=== PATIENT | female | born 1945 | race Caucasian/White ===

== ENCOUNTER 2019-09-22 17:39 | Inpatient (IN) | payer MEDICARE ==
[~2019-09-22] VITALS: Ht 170.2 cm; Wt 64.6 kg
[2019-09-22 17:47] VITALS: BP 106/69
[2019-09-22 18:20] LABS: BASO % 0.4 % (0.0-1.0); EOS % 0.4 % (1.0-4.0); HEMATOCRIT 41.7 % (37.0-47.0); LYMPH # 1.4 10*3/uL (1.3-4.4); LYMPH % 27.5 % (27.0-41.0); MEAN CELL VOLUME 86.2 fl (81.0-99.0); MEAN CORPUSCULAR HGB 30.4 pg (27.0-31.0); MEAN CORPUSCULAR HGB CONC 35.3 g/dl (33.0-37.0); MEAN PLATELET VOLUME 9.7 fl (9.6-12.3); MONO # 0.7 10*3/uL (0.1-1.0); MONO % 14.2 % (3.0-9.0); NEUT # 2.8 10*3/uL (2.3-7.9); NEUT % 56.7 % (47.0-73.0); PLATELET COUNT AUTOMATED 414 10*3/uL (130-400); RED BLOOD COUNT 4.84 10*6/uL (4.10-5.10); RED CELL DISTRI WIDTH 13.7 % (0-14.5); WHITE BLOOD COUNT 4.9 10*3/uL (4.8-10.8)
[2019-09-22 18:35] LABS: ALBUMIN 2.7 gm/dl (3.1-4.5); ALKALINE PHOSPHATASE 93 U/L (45-117); BUN 34 mg/dl (7-24); CHLORIDE 92 mmol/L (98-107); CREATININE 1.07 mg/dL (0.55-1.02); POTASSIUM 2.7 mmol/L (3.5-5.1); SGOT/AST 26 IU/L (3-35); SGPT/ALT 32 U/L (12-78); SODIUM 130 mmol/L (136-145); TOTAL PROTEIN 6.4 gm/dL (6.4-8.2)
[2019-09-22 20:01] VITALS: BP 132/66
[2019-09-22 20:25] VITALS: BP 152/72
[2019-09-22] MEDS ORDERED: NORVASC5 MG PO (20:38)
[2019-09-22 22:40] VITALS: BP 152/72
[2019-09-23] VITALS: BP 108/63
[2019-09-23 08:00] VITALS: BP 142/86
[2019-09-23 08:12] LABS: BUN 30 mg/dl (7-24); CHLORIDE 100 mmol/L (98-107); CREATININE 0.67 mg/dL (0.55-1.02); SODIUM 140 mmol/L (136-145)
[2019-09-23 08:20] LABS: POTASSIUM 2.3 mmol/L (3.5-5.1)
[2019-09-23 12:00] VITALS: BP 130/80
[2019-09-23 12:46] LABS: ALBUMIN 2.3 gm/dl (3.1-4.5); ALKALINE PHOSPHATASE 91 U/L (45-117); BUN 31 mg/dl (7-24); CHLORIDE 100 mmol/L (98-107); CREATININE 0.63 mg/dL (0.55-1.02); POTASSIUM 2.8 mmol/L (3.5-5.1); SGOT/AST 32 IU/L (3-35); SGPT/ALT 34 U/L (12-78); SODIUM 139 mmol/L (136-145); TOTAL PROTEIN 5.6 gm/dL (6.4-8.2)
[2019-09-23 16:00] VITALS: BP 159/84
[2019-09-23 20:00] VITALS: BP 161/80
[2019-09-24] VITALS: BP 160/85
[2019-09-24 07:51] LABS: BUN 25 mg/dl (7-24); CHLORIDE 101 mmol/L (98-107); CREATININE 0.52 mg/dL (0.55-1.02); POTASSIUM 3.6 mmol/L (3.5-5.1); SODIUM 137 mmol/L (136-145)
[2019-09-24 08:00] VITALS: BP 146/90
[2019-09-24 12:00] VITALS: BP 144/80
[2019-09-24 16:00] VITALS: BP 153/82
[2019-09-24 20:00] VITALS: BP 152/80
[2019-09-25] VITALS: BP 142/81
[2019-09-25 06:26] LABS: BUN 18 mg/dl (7-24); CHLORIDE 103 mmol/L (98-107); CREATININE 0.51 mg/dL (0.55-1.02); POTASSIUM 3.3 mmol/L (3.5-5.1); SODIUM 137 mmol/L (136-145)
[2019-09-25 08:01] VITALS: BP 140/70
[2019-09-25] MEDS ORDERED: GLUCOPHAGE500 MG PO (10:50)
[2019-09-25] MEDS ORDERED: KLOR-CON M2020 ME1 PO (10:59)
[2019-09-25] MEDS ORDERED: ZESTRIL,PRINIVIL5 MG PO (10:59)
[2019-09-25 12:00] VITALS: BP 138/75
[2019-09-25 16:00] VITALS: BP 116/62
== END 2019-09-25 19:02 | disposition home or self-care (01) | DRG 638 ==
LOC: ED 17:39 → 5E 19:15 → EDHOLD 19:15 → 5E 19:40
PROVIDERS: Emergency Medicine; ADMIT Internal Medicine
DX: E11.65 Type 2 diabetes mellitus with hyperglycemia (principal); E44.0 Moderate protein-calorie malnutrition; E86.0 Dehydration; I10 Essential (primary) hypertension; E87.6 Hypokalemia; Z68.22 Body mass index [BMI] 22.0-22.9, adult; Z93.3 Colostomy status; Z90.49 Acquired absence of other specified parts of digestive tract

== ENCOUNTER 2019-09-30 16:16 | Inpatient (IN) | payer MEDICARE ==
[~2019-09-30] VITALS: Ht 167.6 cm; Wt 63.1 kg
[~2019-09-30 16:16] MED LIST: GLUCOPHAGE500 MG PO; KLOR-CON M2020 ME1 PO; NORVASC5 MG PO; ZESTRIL,PRINIVIL5 MG PO
[2019-09-30 16:19] VITALS: BP 102/67
[2019-09-30 16:47] LABS: BASO % 0.3 % (0.0-1.0); EOS # 0.1 10*3/uL (0.0-0.4); EOS % 0.9 % (1.0-4.0); HEMATOCRIT 39.7 % (37.0-47.0); LYMPH # 1.9 10*3/uL (1.3-4.4); LYMPH % 21.2 % (27.0-41.0); MEAN CELL VOLUME 89.4 fl (81.0-99.0); MEAN CORPUSCULAR HGB 29.5 pg (27.0-31.0); MEAN PLATELET VOLUME 8.9 fl (9.6-12.3); MONO # 0.7 10*3/uL (0.1-1.0); MONO % 7.1 % (3.0-9.0); NEUT # 6.3 10*3/uL (2.3-7.9); NEUT % 69.7 % (47.0-73.0); PLATELET COUNT AUTOMATED 394 10*3/uL (130-400); RED BLOOD COUNT 4.44 10*6/uL (4.10-5.10); RED CELL DISTRI WIDTH 14.5 % (0-14.5); WHITE BLOOD COUNT 9.1 10*3/uL (4.8-10.8)
[2019-09-30 16:58] LABS: ACT PARTIAL THROMBO TIME 25.6 SECONDS (20.0-32.1)
[2019-09-30 17:03] LABS: ALBUMIN 2.2 gm/dl (3.1-4.5); ALKALINE PHOSPHATASE 97 U/L (45-117); BUN 18 mg/dl (7-24); CHLORIDE 110 mmol/L (98-107); CREATININE 0.66 mg/dL (0.55-1.02); LIPASE 110 U/L (73-393); POTASSIUM 4.7 mmol/L (3.5-5.1); SGOT/AST 12 IU/L (3-35); SGPT/ALT 22 U/L (12-78); SODIUM 137 mmol/L (136-145); TOTAL PROTEIN 5.8 gm/dL (6.4-8.2)
[2019-09-30 17:13] LABS: TROPONIN I 0.056 ng/ml (<0.045)
[2019-09-30 18:51] VITALS: BP 122/68
[2019-09-30] MEDS ORDERED: METFORMIN HYDR500 MG PO (19:57)
[2019-09-30] MEDS ORDERED: GLIMEPIRIDE4 M1 PO (19:57)
[2019-09-30 20:20] VITALS: BP 102/72
[2019-10-01] VITALS: BP 127/70
[2019-10-01 07:28] LABS: BUN 15 mg/dl (7-24); CHLORIDE 109 mmol/L (98-107); CREATININE 0.56 mg/dL (0.55-1.02); POTASSIUM 4.2 mmol/L (3.5-5.1); SODIUM 139 mmol/L (136-145)
[2019-10-01 08:00] VITALS: BP 134/69; BP 136/54
[2019-10-01 08:23] LABS: BASO % 0.5 % (0.0-1.0); EOS # 0.3 10*3/uL (0.0-0.4); EOS % 4.1 % (1.0-4.0); HEMATOCRIT 36.1 % (37.0-47.0); LYMPH # 2.2 10*3/uL (1.3-4.4); LYMPH % 33.4 % (27.0-41.0); MEAN CELL VOLUME 90.3 fl (81.0-99.0); MEAN CORPUSCULAR HGB CONC 33.2 g/dl (33.0-37.0); MEAN PLATELET VOLUME 9.5 fl (9.6-12.3); MONO # 0.6 10*3/uL (0.1-1.0); MONO % 8.9 % (3.0-9.0); NEUT # 3.4 10*3/uL (2.3-7.9); NEUT % 52.2 % (47.0-73.0); PLATELET COUNT AUTOMATED 365 10*3/uL (130-400); RED CELL DISTRI WIDTH 14.6 % (0-14.5); WHITE BLOOD COUNT 6.5 10*3/uL (4.8-10.8)
[2019-10-01 12:00] VITALS: BP 119/66
[2019-10-01 13:56] LABS: BILIRUBIN NEGATIVE (NEGATIVE); CLARITY SL CLOUDY (CLEAR); COLOR YELLOW (YELLOW); GLUCOSE NEGATIVE (NEGATIVE); KETONE TRACE (NEGATIVE)
[2019-10-01 13:57] LABS: BLOOD NEGATIVE (NEGATIVE); LEUKO ESTERASE 1+ (NEGATIVE); NITRITE NEGATIVE (NEGATIVE); UROBILINOGEN 0.2 E.U./dl (0.2-1.0)
[2019-10-01 14:07] LABS: RBC 0-2 rbc/hpf (0-2); WBC 16-20 wbc/hpf (0-5)
[2019-10-01 14:08] LABS: BACTERIA 4+; MUCOUS TRACE
[2019-10-01 16:00] VITALS: BP 129/79
[2019-10-01 20:00] VITALS: BP 85/49; BP 96/62
[2019-10-02] VITALS: BP 135/76
[2019-10-02 08:00] VITALS: BP 103/56
[2019-10-02 12:00] VITALS: BP 110/52
[2019-10-02 16:00] VITALS: BP 129/57
[2019-10-02 20:00] VITALS: BP 120/63
[2019-10-03] VITALS: BP 127/78
[2019-10-03 06:27] LABS: BASO % 0.2 % (0.0-1.0); EOS # 0.1 10*3/uL (0.0-0.4); EOS % 0.9 % (1.0-4.0); HEMATOCRIT 38.8 % (37.0-47.0); LYMPH # 1.6 10*3/uL (1.3-4.4); LYMPH % 18.7 % (27.0-41.0); MEAN CELL VOLUME 87.8 fl (81.0-99.0); MEAN CORPUSCULAR HGB 28.7 pg (27.0-31.0); MEAN CORPUSCULAR HGB CONC 32.7 g/dl (33.0-37.0); MEAN PLATELET VOLUME 9.3 fl (9.6-12.3); MONO # 0.7 10*3/uL (0.1-1.0); MONO % 8.4 % (3.0-9.0); NEUT # 6.2 10*3/uL (2.3-7.9); NEUT % 71.5 % (47.0-73.0); PLATELET COUNT AUTOMATED 400 10*3/uL (130-400); RED BLOOD COUNT 4.42 10*6/uL (4.10-5.10); RED CELL DISTRI WIDTH 14.3 % (0-14.5); WHITE BLOOD COUNT 8.6 10*3/uL (4.8-10.8)
[2019-10-03 06:47] LABS: BUN 17 mg/dl (7-24); CHLORIDE 106 mmol/L (98-107); CREATININE 0.51 mg/dL (0.55-1.02); POTASSIUM 3.7 mmol/L (3.5-5.1); SODIUM 138 mmol/L (136-145)
[2019-10-03 08:00] VITALS: BP 152/85
[2019-10-03 12:00] VITALS: BP 155/74
[2019-10-03] MEDS ORDERED: REMERON15 M2 PO (16:27)
[2019-10-03] MEDS ORDERED: QUESTRAN POWDE378 GM PO (16:30)
== END 2019-10-03 18:15 | disposition other institution (70) | DRG 637 ==
LOC: ED 16:16 → EDHOLD 19:03 → 5E 19:03
PROVIDERS: Emergency Medicine; ADMIT Internal Medicine
DX: E11.65 Type 2 diabetes mellitus with hyperglycemia (principal); E43 Unspecified severe protein-calorie malnutrition; E86.0 Dehydration; E87.6 Hypokalemia; R62.7 Adult failure to thrive; I10 Essential (primary) hypertension; E11.649 Type 2 diabetes mellitus with hypoglycemia without coma; R19.7 Diarrhea, unspecified; R26.9 Unspecified abnormalities of gait and mobility; Z68.22 Body mass index [BMI] 22.0-22.9, adult; Z93.3 Colostomy status; Z90.49 Acquired absence of other specified parts of digestive tract; F32.9 Major depressive disorder, single episode, unspecified

== ENCOUNTER → 2020-09-29 | Outpatient (CLI) | payer MEDICARE ==
[~2020-09-29] MED LIST changes: +GLIMEPIRIDE4 M1 PO; +METFORMIN HYDR500 MG PO; +QUESTRAN POWDE378 GM PO; +REMERON15 M2 PO
[2020-09-29 15:47] LABS: ALBUMIN 3.1 gm/dl (3.1-4.5); CREATININE 1.25 mg/dL (0.55-1.02); TOTAL PROTEIN 7.9 gm/dL (6.4-8.2)
== END | disposition home or self-care (01) ==
LOC: LAB 12:29
PROVIDERS: ATTEND Internal Medicine
DX: I10 Essential (primary) hypertension (principal); E78.2 Mixed hyperlipidemia

== ENCOUNTER → 2020-11-22 | Outpatient (CLI) | payer MEDICARE ==
[2020-11-22 12:02] LABS: ALBUMIN 3.3 gm/dl (3.1-4.5); CREATININE 1.41 mg/dL (0.55-1.02); POTASSIUM 4.1 mmol/L (3.5-5.1); TOTAL PROTEIN 7.6 gm/dL (6.4-8.2)
== END | disposition home or self-care (01) ==
LOC: LAB 11:14
PROVIDERS: ATTEND Internal Medicine
DX: E55.9 Vitamin D deficiency, unspecified (principal); D52.9 Folate deficiency anemia, unspecified; D51.9 Vitamin B12 deficiency anemia, unspecified; R70.0 Elevated erythrocyte sedimentation rate; R79.82 Elevated C-reactive protein (CRP); R74.8 Abnormal levels of other serum enzymes; R79.89 Other specified abnormal findings of blood chemistry; R53.81 Other malaise; E03.9 Hypothyroidism, unspecified; E78.2 Mixed hyperlipidemia

== ENCOUNTER → 2020-12-09 | Outpatient (CLI) | payer MEDICARE | END | disposition home or self-care (01) | LOC: US 14:57 | PROVIDERS: ATTEND Internal Medicine | DX: R60.0 Localized edema (principal) ==

== ENCOUNTER 2021-02-11 16:43 | Emergency (ER) | payer MEDICARE ==
[~2021-02-11] VITALS: Ht 167.6 cm; Wt 67.6 kg
[2021-02-11 17:50] LABS: EOS % 0.2 % (1.0-4.0); MONO % 5.6 % (3.0-9.0)
[2021-02-11 18:04] LABS: ALBUMIN 3.3 gm/dl (3.1-4.5); CREATININE 1.29 mg/dL (0.55-1.02); TOTAL PROTEIN 8.1 gm/dL (6.4-8.2)
[2021-02-11 18:11] LABS: BASO % 0.3 % (0.0-1.0); HEMATOCRIT 33.8 % (37.0-47.0); LYMPH % 15.7 % (27.0-41.0); MEAN CELL VOLUME 94.2 fl (81.0-99.0); MEAN CORPUSCULAR HGB 33.1 pg (27.0-31.0); MEAN CORPUSCULAR HGB CONC 35.2 g/dl (33.0-37.0); MEAN PLATELET VOLUME 10.1 fl (9.6-12.3); MONO # 0.4 10*3/uL (0.1-1.0); NEUT # 5.1 10*3/uL (2.3-7.9); NEUT % 77.9 % (47.0-73.0); PLATELET COUNT AUTOMATED 329 10*3/uL (130-400); RED BLOOD COUNT 3.59 10*6/uL (4.10-5.10); RED CELL DISTRI WIDTH 17.9 % (0-14.5); WHITE BLOOD COUNT 6.6 10*3/uL (4.8-10.8)
[2021-02-11] MEDS ORDERED: ZOFRAN4 MG PO (18:27)
== END 2021-02-11 18:32 | disposition home or self-care (01) ==
LOC: ED 16:43
PROVIDERS: Student in an Organized Health Care Education/Training Program
DX: I16.0 Hypertensive urgency (principal); R11.0 Nausea

== ENCOUNTER → 2021-05-04 | Outpatient (CLI) | payer MEDICARE ==
[~2021-05-04] MED LIST changes: +ZOFRAN4 MG PO
[2021-05-04 16:18] LABS: ALBUMIN 2.9 gm/dl (3.1-4.5); CREATININE 1.23 mg/dL (0.55-1.02); POTASSIUM 4.2 mmol/L (3.5-5.1); TOTAL PROTEIN 7.5 gm/dL (6.4-8.2)
== END ==
LOC: LAB 15:23
PROVIDERS: ATTEND Internal Medicine
DX: I10 Essential (primary) hypertension (principal); E78.2 Mixed hyperlipidemia

== ENCOUNTER → 2021-05-11 | Outpatient (CLI) | payer MEDICARE | LOC: LAB 13:47 | PROVIDERS: ATTEND Internal Medicine | DX: N39.0 Urinary tract infection, site not specified (principal) ==

== ENCOUNTER → 2021-07-12 | Outpatient (CLI) | payer MEDICARE ==
[2021-07-12 14:46] LABS: BILIRUBIN Negative (Negative); BLOOD 1+ (Negative); CLARITY Turbid (Clear); COLOR Yellow (Yellow); GLUCOSE Negative (Negative); KETONE Negative (Negative); LEUKO ESTERASE 3+ (Negative); NITRITE Negative (Negative); PH 6.5 (4.5-8.0); UROBILINOGEN 0.2 E.U./dl (0.0-1.0)
[2021-07-12 15:12] LABS: BACTERIA 3+; WBC TNTC wbc/hpf (0-5)
== END | disposition home or self-care (01) ==
LOC: LAB 14:02
PROVIDERS: ATTEND Internal Medicine
DX: N39.0 Urinary tract infection, site not specified (principal)

== ENCOUNTER → 2021-09-19 | Outpatient (CLI) | payer MEDICARE ==
[2021-09-19 13:59] LABS: BASO % 0.4 % (0.0-1.0); EOS # 0.1 10*3/uL (0.0-0.4); EOS % 1.8 % (1.0-4.0); HEMATOCRIT 28.2 % (37.0-47.0); LYMPH # 1.9 10*3/uL (1.3-4.4); LYMPH % 25.8 % (27.0-41.0); MEAN CELL VOLUME 98.6 fl (81.0-99.0); MEAN CORPUSCULAR HGB 33.6 pg (27.0-31.0); MEAN PLATELET VOLUME 8.8 fl (9.6-12.3); MONO # 0.6 10*3/uL (0.1-1.0); MONO % 7.7 % (3.0-9.0); NEUT # 4.6 10*3/uL (2.3-7.9); NEUT % 63.9 % (47.0-73.0); PLATELET COUNT AUTOMATED 470 10*3/uL (130-400); RED BLOOD COUNT 2.86 10*6/uL (4.10-5.10); RED CELL DISTRI WIDTH 20.5 % (0-14.5); WHITE BLOOD COUNT 7.2 10*3/uL (4.8-10.8)
[2021-09-19 14:20] LABS: POTASSIUM 4.4 mmol/L (3.5-5.1)
[2021-09-19 14:38] LABS: CREATININE 1.32 mg/dL (0.55-1.02); FREE T4 1.35 ng/dl (0.76-1.46); THYROID STIM HORMONE (HS) 0.821 uIU/ml (0.358-4.75); TOTAL PROTEIN 8.2 gm/dL (6.4-8.2)
== END | disposition home or self-care (01) ==
LOC: LAB 13:29
PROVIDERS: ATTEND Internal Medicine
DX: E11.65 Type 2 diabetes mellitus with hyperglycemia (principal); E78.2 Mixed hyperlipidemia; I10 Essential (primary) hypertension; E87.6 Hypokalemia; E03.9 Hypothyroidism, unspecified; E55.9 Vitamin D deficiency, unspecified

== ENCOUNTER 2021-10-26 12:02 | Inpatient (IN) | payer MEDICARE ==
[~2021-10-26] VITALS: Ht 165.1 cm; Wt 66.7 kg
[2021-10-26] VITALS (8 sets, daily range): BP systolic 73–127; BP diastolic 40–64
[2021-10-26 12:47] LABS: BASO % 0.3 % (0.0-1.0); EOS % 0.5 % (1.0-4.0); LYMPH # 1.6 10*3/uL (1.3-4.4); LYMPH % 20.5 % (27.0-41.0); MEAN CELL VOLUME 95.8 fl (81.0-99.0); MEAN CORPUSCULAR HGB 31.6 pg (27.0-31.0); MONO # 0.9 10*3/uL (0.1-1.0); MONO % 11.7 % (3.0-9.0); NEUT # 5.1 10*3/uL (2.3-7.9); NEUT % 66.4 % (47.0-73.0); PLATELET COUNT AUTOMATED 477 10*3/uL (130-400); RED BLOOD COUNT 3.13 10*6/uL (4.10-5.10); RED CELL DISTRI WIDTH 19.7 % (0-14.5); WHITE BLOOD COUNT 7.8 10*3/uL (4.8-10.8)
[2021-10-26 12:58] LABS: ACT PARTIAL THROMBO TIME 34.5 SECONDS (20.0-32.1)
[2021-10-26 13:02] LABS: CREATININE 4.38 mg/dL (0.55-1.02); POTASSIUM 5.1 mmol/L (3.5-5.1); TOTAL PROTEIN 8.3 gm/dL (6.4-8.2)
[2021-10-26 13:18] LABS: BILIRUBIN Negative (Negative); BLOOD 3+ (Negative); CLARITY Turbid (Clear); COLOR Red (Yellow); GLUCOSE Negative (Negative); KETONE Trace (Negative); LEUKO ESTERASE 3+ (Negative); NITRITE Negative (Negative); PH 5.5 (4.5-8.0); SPECIFIC GRAVITY 1.015 (1.001-1.030); UROBILINOGEN 0.2 E.U./dl (0.0-1.0)
[2021-10-26 13:26] LABS: RBC TNTC rbc/hpf (0-2); WBC TNTC wbc/hpf (0-5)
[2021-10-26] MEDS ORDERED: AMLODIPINE BESY10 MG PO (15:45)
[2021-10-26] MEDS ORDERED: ATORVASTATIN CA40 M1 PO (15:46)
[2021-10-26] MEDS ORDERED: LEVOTHYROXINE50 MCG PO (15:47)
[2021-10-26] MEDS ORDERED: MAGNESIUM OXID400 MG PO (15:47)
[2021-10-26] MEDS ORDERED: ZESTORETIC 20-1 EACH PO (15:47)
[2021-10-26] MEDS ORDERED: METFORMIN HYD1000 MG PO (15:50)
[2021-10-26] MEDS ORDERED: VITAMIN D350 MC2 PO (15:51)
[2021-10-26 20:43] LABS: CREATININE 4.3 mg/dL (0.55-1.02); POTASSIUM 5.2 mmol/L (3.5-5.1)
[2021-10-26 21:27] LABS: RBC TNTC rbc/hpf (0-2)
[2021-10-27 00:18] LABS: ARTERIAL BLOOD GAS PH 7.339 (7.35-7.45); ARTERIAL BLOOD GAS PO2 107.4 (80-90)
[2021-10-27 00:19] LABS: ABG BASE EXCESS -13.8 mmol/L (-2.0-2.0)
[2021-10-27 00:34] LABS: CREATININE 4.04 mg/dL (0.55-1.02); POTASSIUM 4.6 mmol/L (3.5-5.1); TOTAL PROTEIN 6.3 gm/dL (6.4-8.2)
[2021-10-27 04:00] VITALS: BP 94/52
[2021-10-27 05:08] LABS: CREATININE 3.92 mg/dL (0.55-1.02); POTASSIUM 3.7 mmol/L (3.5-5.1); TOTAL PROTEIN 6.3 gm/dL (6.4-8.2)
[2021-10-27 06:45] LABS: HEMATOCRIT 27.1 % (37.0-47.0); MEAN CORPUSCULAR HGB 29.4 pg (27.0-31.0); MEAN CORPUSCULAR HGB CONC 33.6 g/dl (33.0-37.0); MEAN PLATELET VOLUME 9.4 fl (9.6-12.3); PLATELET COUNT AUTOMATED 385 10*3/uL (130-400); RED BLOOD COUNT 3.09 10*6/uL (4.10-5.10); WHITE BLOOD COUNT 7.6 10*3/uL (4.8-10.8)
[2021-10-27 06:47] LABS: MANUAL DIFF REFLEX YES
[2021-10-27 07:33] LABS: MEAN CELL VOLUME 87.7 fl (81.0-99.0)
[2021-10-27 07:36] LABS: PLATELET SUFFICIENCY NORMAL (NORMAL); TOTAL CELLS COUNTED 100 #CELLS
[2021-10-27 08:00] VITALS: BP 110/46
[2021-10-27 12:00] VITALS: BP 101/47
[2021-10-27 16:00] VITALS: BP 108/56
[2021-10-27 16:28] LABS: CREATININE 3.81 mg/dL (0.55-1.02); POTASSIUM 3.6 mmol/L (3.5-5.1); TOTAL PROTEIN 6.2 gm/dL (6.4-8.2)
[2021-10-27 20:00] VITALS: BP 99/60
[2021-10-28] VITALS: BP 99/70
[2021-10-28 06:34] LABS: POTASSIUM 3.3 mmol/L (3.5-5.1)
[2021-10-28 06:41] LABS: CREATININE 3.48 mg/dL (0.55-1.02)
[2021-10-28 07:03] LABS: BASO % 0.2 % (0.0-1.0); EOS # 0.2 10*3/uL (0.0-0.4); EOS % 2.2 % (1.0-4.0); HEMATOCRIT 24.4 % (37.0-47.0); LYMPH # 1.8 10*3/uL (1.3-4.4); LYMPH % 21.4 % (27.0-41.0); MEAN CELL VOLUME 86.5 fl (81.0-99.0); MEAN CORPUSCULAR HGB 29.1 pg (27.0-31.0); MEAN CORPUSCULAR HGB CONC 33.6 g/dl (33.0-37.0); MEAN PLATELET VOLUME 9.8 fl (9.6-12.3); MONO % 11.7 % (3.0-9.0); NEUT # 5.4 10*3/uL (2.3-7.9); NEUT % 63.9 % (47.0-73.0); PLATELET COUNT AUTOMATED 387 10*3/uL (130-400); RED BLOOD COUNT 2.82 10*6/uL (4.10-5.10); RED CELL DISTRI WIDTH 17.2 % (0-14.5); WHITE BLOOD COUNT 8.4 10*3/uL (4.8-10.8)
[2021-10-28 08:00] VITALS: BP 121/61
[2021-10-28 08:08] LABS: CREATININE,URINE 8.1 mg/dL (Not Estab.)
[2021-10-28 16:00] VITALS: BP 110/53
[2021-10-28 20:00] VITALS: BP 117/60
[2021-10-29] VITALS: BP 118/47
[2021-10-29 05:19] LABS: CREATININE 2.38 mg/dL (0.55-1.02); POTASSIUM 3.9 mmol/L (3.5-5.1); TOTAL PROTEIN 6.5 gm/dL (6.4-8.2)
[2021-10-29 07:18] LABS: BASO % 0.2 % (0.0-1.0); EOS # 0.3 10*3/uL (0.0-0.4); EOS % 3.1 % (1.0-4.0); HEMATOCRIT 26.7 % (37.0-47.0); LYMPH # 1.3 10*3/uL (1.3-4.4); LYMPH % 14.4 % (27.0-41.0); MEAN CORPUSCULAR HGB 29.3 pg (27.0-31.0); MEAN PLATELET VOLUME 9.7 fl (9.6-12.3); MONO # 0.9 10*3/uL (0.1-1.0); NEUT # 6.5 10*3/uL (2.3-7.9); NEUT % 71.6 % (47.0-73.0); PLATELET COUNT AUTOMATED 427 10*3/uL (130-400); RED CELL DISTRI WIDTH 17.3 % (0-14.5); WHITE BLOOD COUNT 9.1 10*3/uL (4.8-10.8)
[2021-10-29 08:00] VITALS: BP 129/68
[2021-10-29 08:07] LABS: CREATININE,URINE 24.5 mg/dL (Not Estab.)
[2021-10-29 12:00] VITALS: BP 146/80
[2021-10-29] MEDS ORDERED: AMOXICILLIN500 M3 PO (14:29)
[2021-10-29] MEDS ORDERED: LEVOFLOXACIN750 M2 PO (14:29)
[2021-10-29 16:00] VITALS: BP 119/45
[2021-10-29 20:00] VITALS: BP 106/58
[2021-10-30] VITALS: BP 121/59
[2021-10-30] MEDS ORDERED: TRADJENTA5 M1 PO (07:24)
[2021-10-30 08:00] VITALS: BP 127/53
[2021-10-30 12:00] VITALS: BP 132/57
[2021-10-30 16:00] VITALS: BP 124/53
[2021-10-30 20:00] VITALS: BP 116/52
[2021-10-31] VITALS: BP 127/50; BP 129/60
[2021-10-31 04:51] LABS: CREATININE 1.81 mg/dL (0.55-1.02); TOTAL PROTEIN 6.1 gm/dL (6.4-8.2)
[2021-10-31 08:00] VITALS: BP 125/63
[2021-10-31 12:00] VITALS: BP 123/59
[2021-10-31 16:00] VITALS: BP 126/75
[2021-10-31 20:00] VITALS: BP 127/50
[2021-11-01] VITALS: BP 128/60
[2021-11-01] MEDS ORDERED: AMOXICILLIN500 M2 PO (07:18)
[2021-11-01] MEDS ORDERED: ATORVASTATIN CA40 M1 PO (07:18)
[2021-11-01] MEDS ORDERED: LEVOTHYROXINE50 MCG PO (07:18)
[2021-11-01] MEDS ORDERED: MIRTAZAPINE15 M2 PO (07:18)
[2021-11-01] MEDS ORDERED: VITAMIN D350 MC2 PO (07:19)
[2021-11-01] MEDS ORDERED: MAGNESIUM OXID400 MG PO (07:19)
[2021-11-01] MEDS ORDERED: AMLODIPINE BESY10 MG PO (07:19)
[2021-11-01 08:00] VITALS: BP 106/53
[2021-11-01 12:00] VITALS: BP 145/61
== END 2021-11-01 14:47 | disposition home health service (06) | DRG 689 ==
LOC: ED 12:02 → 4E 14:39 → EDHOLD 14:39 → 4E 16:40
PROVIDERS: Emergency Medicine; Internal Medicine Infectious Disease; Internal Medicine Nephrology; ADMIT Internal Medicine; ATTEND Internal Medicine
DX: N13.6 Pyonephrosis (principal); E43 Unspecified severe protein-calorie malnutrition; G93.41 Metabolic encephalopathy; F33.1 Major depressive disorder, recurrent, moderate; E87.2 Acidosis; E87.1 Hypo-osmolality and hyponatremia; E86.0 Dehydration; N17.0 Acute kidney failure with tubular necrosis; I10 Essential (primary) hypertension; I95.9 Hypotension, unspecified; E87.5 Hyperkalemia; R31.9 Hematuria, unspecified; E87.8 Other disorders of electrolyte and fluid balance, not elsewhere classified; D64.9 Anemia, unspecified; R62.7 Adult failure to thrive; E78.2 Mixed hyperlipidemia; E55.9 Vitamin D deficiency, unspecified; E03.9 Hypothyroidism, unspecified; B96.89 Other specified bacterial agents as the cause of diseases classified elsewhere; E11.9 Type 2 diabetes mellitus without complications; S31.103A Unspecified open wound of abdominal wall, right lower quadrant without penetration into peritoneal cavity, initial encounter; K52.9 Noninfective gastroenteritis and colitis, unspecified; Z20.822 Contact with and (suspected) exposure to COVID-19; B96.20 Unspecified Escherichia coli [E. coli] as the cause of diseases classified elsewhere; D63.8 Anemia in other chronic diseases classified elsewhere; Z93.3 Colostomy status; Z90.49 Acquired absence of other specified parts of digestive tract; X58.XXXA Exposure to other specified factors, initial encounter; Y93.89 Activity, other specified; Y92.89 Other specified places as the place of occurrence of the external cause; Y99.8 Other external cause status; Z68.24 Body mass index [BMI] 24.0-24.9, adult

== ENCOUNTER → 2021-12-08 | Outpatient (CLI) | payer MEDICARE ==
[~2021-12-08] MED LIST changes: +AMLODIPINE BESY10 MG PO; +AMOXICILLIN500 M2 PO; +AMOXICILLIN500 M3 PO; +ATORVASTATIN CA40 M1 PO; +LEVOFLOXACIN750 M2 PO; +LEVOTHYROXINE50 MCG PO; +MAGNESIUM OXID400 MG PO; +METFORMIN HYD1000 MG PO; +MIRTAZAPINE15 M2 PO; +TRADJENTA5 M1 PO; +VITAMIN D350 MC2 PO; +ZESTORETIC 20-1 EACH PO
[2021-12-08 13:13] LABS: BILIRUBIN Negative (Negative); BLOOD 2+ (Negative); CLARITY Turbid (Clear); COLOR Yellow (Yellow); GLUCOSE Negative (Negative); KETONE Negative (Negative); LEUKO ESTERASE 3+ (Negative); NITRITE Positive (Negative); UROBILINOGEN 0.2 E.U./dl (0.0-1.0)
[2021-12-08 13:27] LABS: BASO % 0.7 % (0.0-1.0); EOS # 0.1 10*3/uL (0.0-0.4); EOS % 2.3 % (1.0-4.0); HEMATOCRIT 27.9 % (37.0-47.0); LYMPH # 1.7 10*3/uL (1.3-4.4); MEAN CELL VOLUME 95.9 fl (81.0-99.0); MEAN CORPUSCULAR HGB 31.6 pg (27.0-31.0); MEAN PLATELET VOLUME 10.2 fl (9.6-12.3); MONO # 0.5 10*3/uL (0.1-1.0); MONO % 10.6 % (3.0-9.0); NEUT % 46.2 % (47.0-73.0); PLATELET COUNT AUTOMATED 307 10*3/uL (130-400); RED BLOOD COUNT 2.91 10*6/uL (4.10-5.10); RED CELL DISTRI WIDTH 16.7 % (0-14.5); WHITE BLOOD COUNT 4.4 10*3/uL (4.8-10.8)
[2021-12-08 13:33] LABS: BACTERIA 4+; WBC TNTC wbc/hpf (0-5)
[2021-12-08 13:41] LABS: CREATININE 1.42 mg/dL (0.55-1.02); POTASSIUM 3.8 mmol/L (3.5-5.1); TOTAL PROTEIN 7.8 gm/dL (6.4-8.2)
[2021-12-09 05:06] LABS: TOTAL PROTEIN, SERUM 6.8 g/dL (6.0-8.5)
[2021-12-09 08:07] LABS: IMMUNOGLOBULIN G, QNT 1686 mg/dL (586-1602); IMMUNOGLOBULIN M, QNT 121 mg/dL (26-217)
[2021-12-09 10:07] LABS: CREATININE,URINE 31.1 mg/dL (Not Estab.)
[2021-12-11 15:06] LABS: A/G RATIO 0.7 (0.7-1.7); ALBUMIN 2.9 g/dL (2.9-4.4); ALPHA-1-GLOBULIN 0.3 g/dL (0.0-0.4); ALPHA-2-GLOBULIN 1.2 g/dL (0.4-1.0); GAMMA GLOBULIN 1.5 g/dL (0.4-1.8); GLOBULIN, TOTAL 3.9 g/dL (2.2-3.9); M-SPIKE Not Observed g/dL (Not Observed)
== END ==
LOC: LAB 12:38
PROVIDERS: ATTEND Internal Medicine Nephrology
DX: N17.9 Acute kidney failure, unspecified (principal); D64.9 Anemia, unspecified; N39.0 Urinary tract infection, site not specified

== ENCOUNTER → 2021-12-15 | Outpatient (CLI) | payer MEDICARE ==
[2021-12-15 14:17] LABS: POTASSIUM 4.5 mmol/L (3.5-5.1)
[2021-12-15 14:25] LABS: CREATININE 1.52 mg/dL (0.55-1.02); FREE T4 1.24 ng/dl (0.76-1.46); THYROID STIM HORMONE (HS) 1.15 uIU/ml (0.358-4.75); TOTAL PROTEIN 8.3 gm/dL (6.4-8.2)
[2021-12-15 14:47] LABS: VITAMIN D, 25-HYDROXY 61.4 ng/mL (30-100)
== END | disposition home or self-care (01) ==
LOC: LAB 12:34 → US 13:00
PROVIDERS: Internal Medicine; ATTEND Internal Medicine Nephrology
DX: I10 Essential (primary) hypertension (principal); E03.9 Hypothyroidism, unspecified; E11.65 Type 2 diabetes mellitus with hyperglycemia; N13.39 Other hydronephrosis; E55.9 Vitamin D deficiency, unspecified; Z13.89 Encounter for screening for other disorder; Z13.0 Encounter for screening for diseases of the blood and blood-forming organs and certain disorders involving the immune mechanism; Z13.1 Encounter for screening for diabetes mellitus; Z13.220 Encounter for screening for lipoid disorders; Z13.228 Encounter for screening for other metabolic disorders; Z13.29 Encounter for screening for other suspected endocrine disorder; Z13.6 Encounter for screening for cardiovascular disorders; Z13.9 Encounter for screening, unspecified

== ENCOUNTER → 2021-12-18 | Outpatient (CLI) | payer MEDICARE ==
[2021-12-18 17:04] LABS: BASO % 0.5 % (0.0-1.0); EOS # 0.1 10*3/uL (0.0-0.4); EOS % 1.3 % (1.0-4.0); HEMATOCRIT 26.6 % (37.0-47.0); LYMPH # 2.1 10*3/uL (1.3-4.4); LYMPH % 35.5 % (27.0-41.0); MEAN CELL VOLUME 99.3 fl (81.0-99.0); MEAN CORPUSCULAR HGB 36.2 pg (27.0-31.0); MEAN CORPUSCULAR HGB CONC 36.5 g/dl (33.0-37.0); MEAN PLATELET VOLUME 8.8 fl (9.6-12.3); MONO # 0.4 10*3/uL (0.1-1.0); NEUT # 3.3 10*3/uL (2.3-7.9); NEUT % 55.2 % (47.0-73.0); PLATELET COUNT AUTOMATED 456 10*3/uL (130-400); RED BLOOD COUNT 2.68 10*6/uL (4.10-5.10); RED CELL DISTRI WIDTH 20.7 % (0-14.5)
== END ==
LOC: LAB 01:37
PROVIDERS: ATTEND Internal Medicine
DX: I10 Essential (primary) hypertension (principal); E11.65 Type 2 diabetes mellitus with hyperglycemia; E03.9 Hypothyroidism, unspecified; E55.9 Vitamin D deficiency, unspecified; Z13.89 Encounter for screening for other disorder; Z13.0 Encounter for screening for diseases of the blood and blood-forming organs and certain disorders involving the immune mechanism; Z13.1 Encounter for screening for diabetes mellitus; Z13.21 Encounter for screening for nutritional disorder; Z13.220 Encounter for screening for lipoid disorders; Z13.228 Encounter for screening for other metabolic disorders; Z13.29 Encounter for screening for other suspected endocrine disorder; Z13.6 Encounter for screening for cardiovascular disorders; Z13.9 Encounter for screening, unspecified

== ENCOUNTER → 2022-06-01 | Outpatient (CLI) | payer MEDICARE ==
[~2022-06-01] MED LIST changes: +ESTRACE 0.01%42.5 GM V; +FEROSUL325 M1 PO; +FERREX 150150 MG PO; +GEMTESA75 MG PO; +Glimepiride1 MG PO; +MACROBID100 M1 PO; +VITAMIN D250 MCG PO; +XARELTO2.5 MG PO
[2022-06-01 16:04] LABS: BASO # 0.1 10*3/uL (0.0-0.1); BASO % 0.8 % (0.0-1.0); EOS # 0.2 10*3/uL (0.0-0.4); EOS % 2.4 % (1.0-4.0); HEMATOCRIT 32.7 % (37.0-47.0); LYMPH # 2.5 10*3/uL (1.3-4.4); LYMPH % 28.7 % (27.0-41.0); MEAN CELL VOLUME 95.3 fl (81.0-99.0); MEAN CORPUSCULAR HGB 26.5 pg (27.0-31.0); MEAN CORPUSCULAR HGB CONC 27.8 g/dl (33.0-37.0); MEAN PLATELET VOLUME 8.4 fl (9.6-12.3); MONO # 0.7 10*3/uL (0.1-1.0); MONO % 7.4 % (3.0-9.0); NEUT # 5.3 10*3/uL (2.3-7.9); NEUT % 60.4 % (47.0-73.0); PLATELET COUNT AUTOMATED 650 10*3/uL (130-400); RED BLOOD COUNT 3.43 10*6/uL (4.10-5.10); RED CELL DISTRI WIDTH 18.4 % (0-14.5); WHITE BLOOD COUNT 8.8 10*3/uL (4.8-10.8)
[2022-06-01 16:21] LABS: POTASSIUM 4.2 mmol/L (3.4-5.1)
[2022-06-01 16:35] LABS: ACT PARTIAL THROMBO TIME 31.1 SECONDS (20.0-32.1)
== END | disposition home or self-care (01) ==
LOC: LAB 15:40
PROVIDERS: ATTEND Surgery Vascular Surgery
DX: Z01.818 Encounter for other preprocedural examination (principal); I73.9 Peripheral vascular disease, unspecified; R79.1 Abnormal coagulation profile; J98.11 Atelectasis; M47.814 Spondylosis without myelopathy or radiculopathy, thoracic region; M19.012 Primary osteoarthritis, left shoulder; M19.011 Primary osteoarthritis, right shoulder

== ENCOUNTER 2022-12-03 19:03 | Emergency (ER) | payer MEDICARE ==
[~2022-12-03] VITALS: Ht 157.4 cm; Wt 65.3 kg
[2022-12-03 19:33] LABS: BASO % 0.5 % (0.0-1.0); HEMATOCRIT 30.4 % (37.0-47.0); LYMPH # 1.2 10*3/uL (1.3-4.4); LYMPH % 13.1 % (27.0-41.0); MEAN CELL VOLUME 99.3 fl (81.0-99.0); MEAN CORPUSCULAR HGB 29.1 pg (27.0-31.0); MEAN CORPUSCULAR HGB CONC 29.3 g/dl (33.0-37.0); MEAN PLATELET VOLUME 8.8 fl (9.6-12.3); MONO # 0.5 10*3/uL (0.1-1.0); MONO % 6.1 % (3.0-9.0); NEUT # 6.9 10*3/uL (2.3-7.9); NUCLEATED RED BLOOD CELL 0.2 % (0.0-0.0); PLATELET COUNT AUTOMATED 726 10*3/uL (130-400); RED BLOOD COUNT 3.06 10*6/uL (4.10-5.10); WHITE BLOOD COUNT 8.9 10*3/uL (4.8-10.8)
[2022-12-03 19:50] LABS: BILIRUBIN Negative (Negative); BLOOD 3+ (Negative); CLARITY Turbid (Clear); COLOR Red (Yellow); GLUCOSE Negative (Negative); KETONE Negative (Negative); LEUKO ESTERASE 3+ (Negative); NITRITE Positive (Negative); PH 7.5 (4.5-8.0); SPECIFIC GRAVITY 1.015 (1.001-1.030); UROBILINOGEN 0.2 E.U./dl (0.0-1.0)
[2022-12-03 20:00] LABS: RBC TNTC rbc/hpf (0-2); WBC TNTC wbc/hpf (0-5)
[2022-12-03 20:01] LABS: ALKALINE PHOSPHATASE 114 U/L (46-116); BUN 112 mg/dl (9-23); CHLORIDE 103 mmol/L (98-107); TOTAL PROTEIN 8.8 gm/dL (6.0-8.0)
[2022-12-03 20:09] LABS: SGPT/ALT < 7 U/L (10-49)
[2022-12-03 20:10] LABS: POTASSIUM 6.9 mmol/L (3.4-5.1)
== END 2022-12-03 23:31 ==
LOC: ED 19:03
PROVIDERS: Internal Medicine
DX: I46.9 Cardiac arrest, cause unspecified (principal); R65.20 Severe sepsis without septic shock; N17.9 Acute kidney failure, unspecified; E87.8 Other disorders of electrolyte and fluid balance, not elsewhere classified; I10 Essential (primary) hypertension; R77.8 Other specified abnormalities of plasma proteins; E11.65 Type 2 diabetes mellitus with hyperglycemia; D64.9 Anemia, unspecified; E44.1 Mild protein-calorie malnutrition; Z68.1 Body mass index [BMI] 19.9 or less, adult; D69.6 Thrombocytopenia, unspecified; N39.0 Urinary tract infection, site not specified; Z90.49 Acquired absence of other specified parts of digestive tract; Z98.890 Other specified postprocedural states